=== PATIENT | male | born 1965 | race Two or more races ===

== ENCOUNTER 2022-05-19 19:42 | Emergency (ER) | payer SELFPAY ==
[~2022-05-19] VITALS: Ht 172.7 cm; Wt 75.0 kg
[2022-05-19 19:50] VITALS: BP 145/91
[2022-05-19 21:13] LABS: Basophils # (auto) 0.2 10 ^3/uL (0-0.2); Basophils % (auto) 2.3 % (0.0-2.0); Eosinophils # (auto) 0 10 ^3/uL (0-0.8); Eosinophils % (auto) 0.2 % (0.0-7.0); Hematocrit 41.1 % (41.0-53.0); Hemoglobin 13.1 g/dL (13.5-17.5); Lymphocytes # (auto) 1.7 10 ^3/uL (0.4-5.4); Mean Corpuscular Hemoglobin 24.3 pg (28.0-32.0); Monocytes # (auto) 0.5 10 ^3/uL (0-1.3); Monocytes % (auto) 7.2 % (0.0-12.0); Neutrophils # (auto) 4.5 10 ^3/uL (1.6-8.6); Neutrophils % (auto) 65.3 % (37.0-80.0); Nucleated Red Blood Cells % 0.1 %; Red Blood Cells 5.41 10^6/uL (4.5-5.90); White Blood Cell 6.9 10^3/uL (4.4-10.8)
[2022-05-19 21:29] LABS: Albumin 3.3 g/dL (3.4-5.0); BUN/Creatinine Ratio 11.2; Calcium 8.5 mg/dL (8.5-10.1); Potassium 4.2 mmol/L (3.5-5.1)
[2022-05-19 21:32] LABS: Bilirubin, Total 0.3 mg/dL (0.2-1.0); Total Protein 7.2 g/dL (6.4-8.2)
== END 2022-05-19 23:25 | disposition left against medical advice (07) ==
LOC: ER 19:42 → EDBD 19:42 → ER 23:25
DX: R07.89 Other chest pain (principal)
CPT/HCPCS: 36415; 80053; 80307; 83690; 83735; 83880; 84484; 85025; 93005